=== PATIENT | female | born 1970 | race Caucasian/White ===

== ENCOUNTER 2021-09-22 15:08 | Emergency (ER) | payer SELFPAY ==
[~2021-09-22] VITALS: Ht 154.9 cm; Wt 74.8 kg
[2021-09-22] MEDS ORDERED: AMOCLA875 PO (16:29)
[2021-09-22] MEDS ORDERED: Percocet 10-321 EACH PO (16:29)
== END 2021-09-22 17:22 | disposition home or self-care (01) ==
LOC: ER 15:08
DX: S43.004A Unspecified dislocation of right shoulder joint, initial encounter (principal); S51.811A Laceration without foreign body of right forearm, initial encounter; S61.451A Open bite of right hand, initial encounter; Z23 Encounter for immunization; W54.0XXA Bitten by dog, initial encounter
CPT/HCPCS: 73030; 90714; A9270; J3010

== ENCOUNTER → 2024-10-27 | Outpatient (CLI) | payer OTHER ==
[~2024-10-27] MED LIST: AMOCLA875 PO; Percocet 10-321 EACH PO
[2024-11-01 15:35] LABS: AMPHETAMINE,URN,QUANT <50 ng/mL; MDA,URN,QUANT <200 ng/mL; MDEA,URN,QUANT <200 ng/mL; MDMA,URN,QUANT <200 ng/mL; METHAMPHETAMINE,URN,QUANT <200 ng/mL; PHENTERMINE,URN,QUANT <200 ng/mL
== END | disposition home or self-care (01) ==
LOC: LAB 12:02 → LAB SHORT 12:02
PROVIDERS: Physician Assistant
DX: Z51.81 Encounter for therapeutic drug level monitoring (principal); Z79.899 Other long term (current) drug therapy
CPT/HCPCS: G0480